=== PATIENT | male | born 1975 | race Two or more races ===

== ENCOUNTER 2018-06-27 10:16 | Emergency (ER) | payer OTHER ==
[~2018-06-27] VITALS: Ht 160 cm; Wt 61.2 kg
[2018-06-27 10:16] VITALS: BP 137/82
--- NOTE | 2018-06-27 12:06 | NUR ---
CALLED [facility] TO GIVE REPORT AND OFFICERS ARE IN EN ROUTE
[2018-06-27] MEDS ORDERED: TDAP [DIPH/PERTUSSIS/TET] 0.5 ML VIAL IM ONE (12:11)
[2018-06-27] MEDS: TDAP [DIPH/PERTUSSIS/TET] 0.5 ML VIAL IM ONE (12:16)
[2018-06-27] MEDS: LIDOCAINE 1%-EPI 1:100,000 50 ML VIAL IJ ONE (12:23)
[2018-06-27] MEDS ORDERED: LIDOCAINE 1% INJ 50 ML MDV IJ ONE (12:25)
[2018-06-27] MEDS ORDERED: LIDOCAINE 1%-EPI 1:100,000 20 ML VIAL ONE (12:30)
== END 2018-06-27 13:21 | disposition home or self-care (01) ==
LOC: ER 10:19
DX: S02.2XXA Fracture of nasal bones, initial encounter for closed fracture (principal); S01.21XA Laceration without foreign body of nose, initial encounter; F17.200 Nicotine dependence, unspecified, uncomplicated; F12.90 Cannabis use, unspecified, uncomplicated; Y04.0XXA Assault by unarmed brawl or fight, initial encounter; Y93.89 Activity, other specified; Y92.89 Other specified places as the place of occurrence of the external cause; Y99.8 Other external cause status
CPT/HCPCS: 70160-TC; 70450-TC; 90715; A4606; A6402; J3490; Z7610